=== PATIENT | male | born 1970 | race Caucasian/White ===

== ENCOUNTER 2016-11-06 14:19 | Emergency (ER) | payer OTHER | END 2016-11-06 17:04 | disposition home or self-care (01) | LOC: FER 14:19 | DX: J20.9 Acute bronchitis, unspecified (principal); R19.7 Diarrhea, unspecified; R11.2 Nausea with vomiting, unspecified; I10 Essential (primary) hypertension; I50.9 Heart failure, unspecified; F17.210 Nicotine dependence, cigarettes, uncomplicated; Z88.0 Allergy status to penicillin; Z79.899 Other long term (current) drug therapy | CPT/HCPCS: 71020; 87804; 87899; 94640 ==

== ENCOUNTER 2016-11-13 22:31 | Emergency (ER) | payer OTHER ==
[2016-11-13 23:57] LABS: BASOPHIL 0.1 % (0-2); EOSINOPHIL 0.2 % (0-5); HCT 36.4 % (42.0-52.0); HGB 13.3 g/dl (13.2-18.0); LYMPHOCYTE 44.6 % (15-48); MCH 33.6 pg (25.0-31.0); MCHC 36.5 g/dL (32.0-36.0); MCV 91.9 fL (78.0-100.0); MONOCYTE 9.5 % (0-12); NEUTROPHIL 45.6 % (41-80); PLT 207 K/uL (150-400); RBC 3.96 M/uL (4.70-6.00); RDW 12.4 % (11.5-14.0); WBC 8.3 K/uL (4.0-10.5)
[2016-11-14 00:13] LABS: INR 1.08 (0.9-1.2); PROTHROMBIN TIME 13.6 SECONDS (11.7-14.0); PTT 30.3 SECONDS (23.2-31.4)
[2016-11-14 00:20] LABS: LACTIC ACID 2.4 mmol/L (0.5-2.2); TROPONIN T < 0.010 ng/mL
[2016-11-14 00:21] LABS: PRO-BNP 350 pg/mL (0-125)
[2016-11-14 00:22] LABS: ALBUMIN 3.3 g/dL (3.5-5.0); BILIRUBIN - TOTAL 0.3 mg/dL (0.1-1.0); CREATININE 1.1 mg/dL (0.7-1.2); GLOBULIN (CALCULATION) 2.3 g/dL (2.2-4.2); POTASSIUM 4.1 mmol/L (3.5-5.1); TOTAL PROTEIN 5.6 g/dL (6.4-8.3)
== END 2016-11-14 01:02 | disposition left against medical advice (07) ==
LOC: FER 22:31
PROVIDERS: Internal Medicine
DX: J44.9 Chronic obstructive pulmonary disease, unspecified (principal); I50.9 Heart failure, unspecified; I34.1 Nonrheumatic mitral (valve) prolapse; F17.210 Nicotine dependence, cigarettes, uncomplicated; Z87.19 Personal history of other diseases of the digestive system; Z88.0 Allergy status to penicillin
CPT/HCPCS: 36415; 71020; 80053; 83605; 83880; 84484; 85025; 85610; 85730; 87804; 87899; 94640; J2930